=== PATIENT | male | born 1950 | race Caucasian/White ===

== ENCOUNTER 2020-02-27 13:53 | Outpatient (CLI) | payer MEDICARE, OTHER, SELFPAY ==
--- NOTE | 2020-02-27 14:15 | USCV_ITS ---
Casas Mauri Age: 69 Gender: M : 1950 Exam Date: 02/27/2020 14:42 Ordering Phys: Farnaz Silva MD ([email or web address]) Technologist: Dania Rogers Exam Location: [facility] Indication: CAD BP: 118 / 72 HR: 66 Rhythm: Sinus Technical Quality: Good MEASUREMENTS (Male / Female) Normal Values 2D ECHO LV Diastolic Diameter PLAX 4.5 cm 4.2 - 5.9 / 3.9 - 5.3 cm LV Systolic Diameter PLAX 1.6 cm IVS Diastolic Thickness 1.8 cm 0.6 - 1.0 / 0.6 - 0.9 cm IVS Systolic Thickness 2.1 cm LVPW Diastolic Thickness 0.0 cm 0.6 - 1.0 / 0.6 - 0.9 cm LVPW Systolic Thickness 2.0 cm LVOT Diameter 2.0 cm LV Ejection Fraction 2D Teich 79.1 % LV Ejection Fraction MOD 2C 52.4 % LV Ejection Fraction 2C AL 51.0 % LA Diameter 2.8 cm LA Width 3.0 cm LA Height 3.6 cm RA Width 3.3 cm RA Height 3.9 cm Aorta at Sinotubular Diameter 2.7 cm M-MODE LV Diastolic Diameter MM 4.4 cm 4.2 - 5.9 / 3.9 - 5.3 cm LV Systolic Diameter MM 3.3 cm LV Ejection Fraction MM Teich 50.9 % IVS Diastolic Thickness MM 1.1 cm 0.6 - 1.0 / 0.6 - 0.9 cm IVS Systolic Thickness MM 1.9 cm LVPW Diastolic Thickness MM 1.3 cm 0.6 - 1.0 / 0.6 - 0.9 cm LVPW Systolic Thickness MM 1.9 cm RV Diastolic Diameter MM 1.4 cm Aortic Annulus Diameter 3.9 cm LA Ao Ratio MM 0.8 MV E Point Septal Separation 0.9 cm DOPPLER AV Peak Velocity 113.0 cm/s LVOT Peak Velocity 99.0 cm/s AV Area Cont Eq vti 3.1 cm squared AV Area Cont Eq pk 2.8 cm squared MV Area PHT 2.2 cm squared Mitral E to A Ratio 0.8 MV E' Velocity 35.0 cm/s Mitral E to MV E' Ratio 8.5 Mitral E to LV E' Lateral Ratio 6.9 Mitral E to LV E' Septal Ratio 10.9 TR Peak Velocity 161.3 cm/s TR Peak Gradient 10.4 mmHg TV Peak E Velocity 74.0 cm/s Right Atrial Pressure 3.0 mmHg Pulmonary Artery Systolic Pressu 13.4 mmHg FINDINGS Left Ventricle Normal left ventricular size and systolic function with no regional wall motion abnormalities. Left ventricular ejection fraction is estimated at 60 -65 %. Indeterminate diastolic function. Right Ventricle Normal right ventricular size and systolic function, RVSP 13.4 mmHg. Right Atrium Normal right atrial size. Left Atrium Normal left atrial size. Mitral Valve Mildly thickened mitral valve. No mitral valve stenosis. Trace mitral valve regurgitation. Aortic Valve Probably bicuspid aortic valve. No aortic valve stenosis. No aortic valve regurgitation. Tricuspid Valve Tricuspid valve not well visualized. Trace tricuspid valve regurgitation. Pulmonic Valve Structurally normal pulmonic valve. Pericardium No pericardial effusion. Aorta Normal size aortic root and proximal ascending aorta. Normal sized inferior vena cava. CONCLUSIONS 1. Normal left ventricular size and systolic function with no regional wall motion abnormalities. Left ventricular ejection fraction is estimated at 60 -65 %. Indeterminate diastolic function. 2. Normal right ventricular size and systolic function, RVSP 13.4 mmHg. 3. No significant valvular abnormality. 4. No prior similar studies to compare Farnaz Silva MD (Electronically Signed) Final Date: 29 February 2020 18:52 S
== END 2020-02-27 13:54 | disposition home or self-care (01) ==
LOC: US 13:53
PROVIDERS: Visit Provider Internal Medicine Cardiovascular Disease
DX: I25.10 Atherosclerotic heart disease of native coronary artery without angina pectoris (principal)
CPT/HCPCS: 93306

== ENCOUNTER → 2021-06-11 10:06 | Outpatient (BNVA) | payer MEDICARE, OTHER, SELFPAY | PROVIDERS: Visit Provider Internal Medicine Cardiovascular Disease | DX: I48.0 Paroxysmal atrial fibrillation (principal); I10 Essential (primary) hypertension; I25.10 Atherosclerotic heart disease of native coronary artery without angina pectoris; F17.210 Nicotine dependence, cigarettes, uncomplicated | CPT/HCPCS: 99214 ==

== ENCOUNTER 2021-10-07 10:00 | Emergency (ER) | payer MEDICARE, OTHER, SELFPAY ==
--- NOTE | 2021-10-07 10:04 | ECG_ITS ---
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 Measurements Intervals [place] Rate: 62 P: 61 PA: 167 QRS: -70 QRSD: 134 T: -74 QT: 457 QTc: 465 Interpretive Statements SINUS RHYTHM RIGHT BUNDLE BRANCH BLOCK LEFT ANTERIOR FASCICULAR BLOCK POSSIBLE LEFT VENTRICULAR HYPERTROPHY POSSIBLE SEPTAL MYOCARDIAL INFARCTION , PROBABLY OLD MODERATE T-WAVE ABNORMALITY, CONSIDER LATERAL ISCHEMIA MODERATE T-WAVE ABNORMALITY, CONSIDER INFERIOR ISCHEMIA No previous ECG available for comparison Electronically Signed On 10-07-2021 12:05:05 CDT by Farnaz Silva M.D. [id number]
[2021-10-07 10:08] VITALS: BP 201/92; PULSE 70; RESP 18; TEMP 36.4; O2SAT 95; BMI 27.7
--- NOTE | 2021-10-07 10:19 | XR_ITS ---
WS: [id number] Exam: XR chest 1V portable [id number] Date/Time of Exam: 10/07/2021 10:28 AM Reason For Exam: chest pain No priors. The lungs are hyperinflated and clear. Normal cardiomediastinal silhouette. Bony structures are intac t. No pleural effusions. XR/XR chest 1V portable [id number] IMPRESSION: 1. Pulmonary hyperinflation. No acute cardiopulmonary finding.
[2021-10-07 10:55] VITALS: BP 186/95; PULSE 58; RESP 24; O2SAT 93
--- NOTE | 2021-10-07 10:59 | ED_ITS ---
HPI - Chest Pain General: Chief Complaint: Chest Pain Stated Complaint: AFIB Time Seen by Provider: 10/07/21 10:19 Source: patient Mode of arrival: ambulatory Limitations: no limitations History of Present Illness: 70-year-old male with a known history of atrial fibrillation presents emergency room after what he describes as having had an A. fib attack last. For 3 to 4 hours his heart rate was rapid. He is on isosorbide mononitrate and sotalol he states the isosorbide is new with sotalol has been on for quite some time he did not take any extra medications eventually just resolved itself. Additionally takes clopidogrel and aspirin. Not having any chest pain now is completely asymptomatic he denies any shortness of breath or any TopCare any PND MD complaint: other (Atrial fibrillation) Pertinent past history: other (Atrial fibrillation) Timing of current episode: episodic Prior episodes: Yes Onset: during rest Pain radiation: none Relieving factors: nothing Exacerbating factors: nothing Associated symptoms: Deny abdominal pain, diaphoresis, dyspnea, fever(s), leg edema, nausea, palpitations, sense of impending doom, syncope or vomiting Treatment prior to arrival: aspirin and other (Sotalol/isosorbide mononitrate routine meds) Review of Systems Const: Denies: fever(s), chills, fatigue, malaise or diaphoresis ENMT: Denies: throat pain, ear or mastoid pain, nasal discharge or nasal congestion Card: Reports: irregular heart rhythm; Denies: chest pain, palpitations, edema, swelling of feet/ankles or syncope Resp: Denies: dyspnea, productive cough or non-productive cough GI: Denies: abdominal pain, nausea or vomiting : Denies: flank pain, difficulty urinating, dysuria, urinary frequency or urinary urgency Musc: Denies: neck pain or back pain Skin/Breast: Denies: rash or pruritus PFSH ED PFSH: Medical History Atrial fibrillation Coronary artery disease HTN (hypertension) Surgical History S/P coronary artery stent placement Family History Other Diabetes Social History Smoking and tobacco status: current every day smoker cigarettes Packs smoked per day: 1 Alcohol intake: never Physical Exam Const: GENERAL APPEARANCE: cooperative and comfortable CHALO ENTATION/CONSCIOUSNESS: Yes awake, Yes oriented to person, Yes oriented to place and Yes oriented to time HENMT: COMMON NORMALS: normocephalic, atraumatic, hearing grossly normal bilaterally, external ears normal, EAC's normal, TM's normal bilaterally, Normal nasal mucous membranes and turbinates present, moist oral mucous membranes and oropharynx normal HEAD & SCALP: normocephalic and atraumatic NOSE: Normal nasal mucous membranes and turbinates present EXTERNAL EAR: Yes external ears normal EXTERNAL AUDITORY CANAL: EAC's normal TYMPANIC MEMBRANE: TM's normal bilaterally Eye: COMMON NORMALS: Equal, round and reactive pupils present, EOMs intact bilaterally, conjunctivae normal and no scleral icterus CONJUNCTIVA: Yes conjunctivae normal PUPIL: Yes Equal, round and reactive pupils present Neck/C-Spine: COMMON NORMALS: full ROM, no lymphadenopathy, supple and no JVD Lymph: LYMPHATIC: no lymphadenopathy noted and no lymphedema noted Resp: COMMON NORMALS: normal respiratory effort, No retractions, No use of accessory muscles and clear to auscultation bilaterally AUSCULTATION: clear to auscultation bilaterally Cardio: COMMON NORMALS: no JVD, regular rate, regular rhythm and No murmurs present (Cardio) RATE: regular rate RHYTHM: regular rhythm GI: COMMON NORMALS: Soft to palpation and No hepatosplenomegaly present AUSCULTATION: Yes normoactive bowel sounds PALPATION: Yes Soft to palpation, No Tenderness to palpation present (GI), No Guarding due to palpation present ( GI) and Yes No hepatosplenomegaly present Extremity: COMMON NORMALS: normal to inspection, capillary refill normal, no clubbing, cyanosis or edema, no calf tenderness and no pedal edema Neuro: SENSORIUM/ORIENTATION: Yes oriented to person, Yes oriented to place and Yes oriented to time Skin: COMMON NORMALS: no rashes or lesions noted GENERAL SKIN EXAM: no rashes or lesions noted Course Vital Signs: Vital signs: Vital Signs Temperature 97.6 F 10/07/21 10:08 Pulse Rate 56 L 10/07/21 13:13 Respiratory Rate 23 H 10/07/21 13:13 Blood Pressure 185/106 10/07/21 13:13 Pulse Oximetry 94 10/07/21 13:13 Oxygen Delivery Me thod 10/07/21 12:55 MDM - Chest Pain Medical Decision Making Patient heart rate stable at this point we will go ahead and discharge patient home. Blood pressure markedly elevated will add lisinopril. Not inclined to increase his sotalol or add any other rate controlling drugs as while at rest he is relatively bradycardic. Encouraged him to follow-up with his primary care Dr. Holter monitor can evaluate the extent of breakthrough A. fib episodes. Follow-up with cardiology. Return to the ER if he has further problems. Medical Records I reviewed the patient's medical records. Lab Data I reviewed the patient's lab results. : 10/07/21 11:20 10/07/21 11:20 Radiology Impressions Chest X-Ray 10/07/21 10:19 IMPRESSION: 1. Pulmonary hyperinflation. No acute cardiopulmonary finding. Laboratory Results WBC 8.5 10^3/uL (4.0-10.0) 10/07/21 11:20 RBC 5.37 10^6/uL (4.1-5.3) H 10/07/21 11:20 Hgb 15.7 g/dL (11.7-16.6) 10/07/21 11:20 Hct 48.4 % (42.0-52.0) 10/07/21 11:20 MCV 90.1 fl (80-94) 10/07/21 11:20 MCH 29.2 pg (28.0-34.0) 10/07/21 11:20 MCHC 32.4 g/dL (30.0-36.0) 10/07/21 11:20 RDW 14.5 % (12.1-15.1) 10/07/21 11:20 Plt Count 173 10^3/cmm (130-400) 10/07/21 11:20 MPV 10.1 fL (7.4-10.4) 10/07/21 11:20 Neut % (Auto) 57.6 % 10/07/21 11:20 Lymph % (Auto) 29.0 % 10/07/21 11:20 [place] % (Auto) 9.5 % 10/07/21 11:20 Eos % (Auto) 2.7 % 10/07/21 11:20 Baso % (Auto) 0.8 % 10/07/21 11:20 Neut # (Auto) 4.89 10^3/uL (1.8-7.7) 10/07/21 11:20 Lymph # (Auto) 2.5 10^3/uL (0.8-4.8) 10/07/21 11:20 [place] # (Auto) 0.8 10^3/uL (0.2-0.9) 10/07/21 11:20 Eos # (Auto) 0.2 10^3/uL (0.0-0.8) 10/07/21 11:20 Baso # (Auto) 0.1 10^3/uL (0.0-0.1) 10/07/21 11:20 Nucleated RBC % (auto) 0 % 10/07/21 11:20 Nucleated RBCs # 0.0 /100WBC 10/07/21 11:20 Sodium 141 mmol/L (136-145) 10/07/21 11:20 Potassium 4.2 mmol/L (3.5-5.1) 10/07/21 11:20 Chloride 105 mmol/L (98-107) 10/07/21 11:20 Carbon Dioxide 27 mmol/L (22-29) 10/07/21 11:20 Anion Gap 13.2 (5-19) 10/07/21 11:20 BUN 10 mg/dL (8-23) 10/07/21 11:20 Creatinine 0.7 mg/dL (0.7-1.2) 10/07/21 11:20 GFR Calculation 111.5 mL/min (90-130) 10/07/21 11:20 Glucose 92 mg/dL (65-115) 10/07/21 11:20 Calculated Osmolality 291 mOsm/kg (285-295) 10/07/21 11:20 Calcium 9.3 mg/dL (8.5-10.5) 10/07/21 11:20 Total Bilirubin 0.4 mg/dL (0.15-1.2) 10/07/21 11:20 AST 20 U/L (0-40) 10/07/21 11:20 ALT 10 U/L (0-41) 10/07/21 11:20 Alkaline Phosphatase 94 IU/L (40-130) 10/07/21 11:20 Troponin T Baseline 19 ng/L (0-15) H 10/07/21 11:20 Total Protein 6.8 g/dL (6.6-8.7) 10/07/21 11:20 Albumin 3.9 g/dL (3.5-5.2) 10/07/21 11:20 Globulin 2.9 g/dL (1.3-4.6) 10/07/21 11:20 Discharge Plan Discharge Patient Disposition: Home Clinical Impression: Atrial fibrillation, HTN (hypertension) Condition: Stable Prescriptions: New lisinopril 20 mg tablet 20 mg PO DAILY Qty: 30 0RF No Action aspirin 325 mg tablet 325 mg PO DAILY Qty: 30 6RF hydrochlorothiazide 12.5 mg capsule 25 mg PO DAILY Qty: 60 3RF sotalol 80 mg tablet See Rx Instructions .ROUTE .COMPLEX Qty: 60 11RF Dose Instruction: Take 1 tablet by mouth twice daily Rx Instructions: Take 1 tablet by mouth twice daily Discharge Orders: Discharge ED (Routine); Ordered 10/07/21 Ordered By: Raymond Kuhn Discharge Diet: Usual diet Discharge Activity: Resume usual activity Patient Instructions: Opioid Safety Activity Restrictions/Additional Instructions: Follow-up with your math and science instructor. Add lisinopril in addition to your other medications recheck blood pressure within a week. Case management make arrangements for you to have a 48-hour Holter monitor. Coding Level of Care Code ED Set Rider for Pablo Fwdella Exam Comprehensive
[2021-10-07] MEDS: aspirin 81 mg Chew Tablet 324 MG PO (11:15)
[2021-10-07 11:28] LABS: Basophils # 0.1 10^3/uL (0.0-0.1); Basophils % 0.8 %; Eosinophils # 0.2 10^3/uL (0.0-0.8); Eosinophils % 2.7 %; Hematocrit 48.4 % (42.0-52.0); Hemoglobin 15.7 g/dL (11.7-16.6); Lymphocytes # 2.5 10^3/uL (0.8-4.8); Mean Corpuscular HGB Conc 32.4 g/dL (30.0-36.0); Mean Corpuscular Hemoglobin 29.2 pg (28.0-34.0); Mean Corpuscular Volume 90.1 fl (80-94); Mean Platelet Volume 10.1 fL (7.4-10.4); Monocytes # 0.8 10^3/uL (0.2-0.9); Monocytes % 9.5 %; Neutrophils # 4.89 10^3/uL (1.8-7.7); Neutrophils % 57.6 %; Nucleated Red Blood Cells % 0 %; Platelet Count 173 10^3/cmm (130-400); Red Blood Count 5.37 10^6/uL (4.1-5.3); Red Cell Distribution Width 14.5 % (12.1-15.1); White Blood Count 8.5 10^3/uL (4.0-10.0)
[2021-10-07 11:54] LABS: Alanine Aminotransferase 10 U/L (0-41); Albumin Level 3.9 g/dL (3.5-5.2); Alkaline Phosphatase 94 IU/L (40-130); Anion Gap 13.2 (5-19); Aspartate Amino Transferase 20 U/L (0-40); Blood Urea Nitrogen 10 mg/dL (8-23); Calcium 9.3 mg/dL (8.5-10.5); Carbon Dioxide 27 mmol/L (22-29); Chloride 105 mmol/L (98-107); Globulin 2.9 g/dL (1.3-4.6); Glomerular Filtration Rate 111.5 mL/min (90-130); Glucose 92 mg/dL (65-115); Osmolality Calculated 291 mOsm/kg (285-295); Potassium 4.2 mmol/L (3.5-5.1); Sodium 141 mmol/L (136-145); Total Bilirubin 0.4 mg/dL (0.15-1.2); Total Protein 6.8 g/dL (6.6-8.7)
[2021-10-07 11:55] VITALS: BP 194/100; PULSE 56; RESP 23; O2SAT 91
[2021-10-07 12:09] LABS: Troponin(5th) Baseline 19 ng/L (0-15)
[2021-10-07 12:55] VITALS: BP 183/93; PULSE 56; RESP 22; O2SAT 91
[2021-10-07 13:13] VITALS: BP 185/106; PULSE 56; RESP 23; O2SAT 94
--- NOTE | 2021-10-08 09:17 | DCPLANNER ---
Addendum entered by Beverly Bishop 10/09/21 09:30: is project manager was sent the following message from [facility] regarding follow up appointment: Clinic was able to reach patient, he stated he did not want a monitor or an appointment until after he got a second opinion, he was very nice and stated he would call back once he got his 2nd opinion Original Note: is project manager had message to schedule a follow up appointment for patient with cardiology. is project manager sent patients information to the front office staff at [facility]. Patients information will be printed and reviewed. Clinic will call patient with appointment information. is project manager also had message to schedule an outpatient appointment for a 48 hour halter monitor. is project manager faxed signed order to [facility], who will call patient with appointment information.
== END 2021-10-07 13:08 | disposition home or self-care (01) ==
PROVIDERS: Emergency Provider Family Medicine
DX: I48.91 Unspecified atrial fibrillation (principal); I10 Essential (primary) hypertension; Z79.82 Long term (current) use of aspirin; I25.10 Atherosclerotic heart disease of native coronary artery without angina pectoris; F17.210 Nicotine dependence, cigarettes, uncomplicated
CPT/HCPCS: 71045; 80053; 84484; 85025; 93005; 99285